=== PATIENT | female | born 1965 | race Caucasian/White ===

== ENCOUNTER → 2017-11-16 | Outpatient (CLI) | payer OTHER ==
[~2017-11-16] MED LIST: ADIPEX-P37.5 MG PO; AMBIEN 10 MG TA10 MG PO; AMITRIPTYLINE100 MG PO; BENADRYL25 MG PO; CATAPRES-TTS 10.1 MG TD; CIPRO500 MG PO; CLONIDINE PO; COZAAR 50 MG TA50 M1 PO; DARVOCET PO; DILAUDID2 M1 PO; ESTRACE1 MG PO; FLAGYL500 MG PO; FLEXERIL PO; GABAPENTIN300 MG PO; IMITREX100 MG PO; LEXAPRO 10 MG T10 M1 PO; NABUMETONE 750750 M1 PO; NITROFURANTOIN100 MG PO; ONDANSETRON HCL4 M2 PO; PHENERGAN 25 MG25 MG PO; PHENERGAN50 MG RC; PROTONIX40 M1 PO; REGLAN 10 MG TA10 MG PO; RELPAX40 MG PO; ROSUVASTATIN CA10 MG PO; SAPHRIS10 MG SL; TOMAZAPAM PO; TOPAMAX 100 MG100 MG PO; TORADOL 10 MG T10 MG PO; TRAZODONE 150150 M1 PO; VIIBRYD40 MG PO; VITAMIN D1000 UNI1 PO; XANAX1 MG PO; ZANAFLEX4 M1 PO; ZANAFLEX4 MG PO; ZOFRAN 4 MG ORAL4 MG PO
== END ==
LOC: MRI 09:10
DX: M48.02 Spinal stenosis, cervical region (principal); M54.12 Radiculopathy, cervical region; M25.78 Osteophyte, vertebrae; M50.222 Other cervical disc displacement at C5-C6 level; M50.223 Other cervical disc displacement at C6-C7 level; M47.892 Other spondylosis, cervical region; M51.24 Other intervertebral disc displacement, thoracic region

== ENCOUNTER 2018-01-01 14:09 | Inpatient (IN) | payer OTHER ==
[~2018-01-01] VITALS: Ht 165.1 cm; Wt 104.3 kg
--- NOTE | ~2018-01-01 | EKG ---
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 : 1965 Requested By: Sloan Armenta Order Number: [id number] MD: Jewel Kwok Measurements Intervals [place] Rate: 117 P: 42 [place]: 154 QRS: 45 QRSD: 91 T: 16 QT: 340 QTc: 475 Interpretive Statements Sinus tachycardia Nonspecific ST segment abnormality Compared to ECG 04/03/2013 14:17:26 No significant changes Electronically Signed On 01-01-2018 16:35:42 [employer] by Jewel Kwok [email or web address] <ELECTRONICALLY SIGNED> By: Jewel Kwok MD, [facility] 01/01/18 1635 1440 144 Jewel Kwok MD, [facility] /EPI
--- NOTE | ~2018-01-01 | HC ---
Formerly [facility] [address] [address] [place] [address] CONSULTATION Name: ODETTE PALMA Room #: 359-P ADM IN M.R.#: [id number] Admission: 01/01/18 Attend Phys: Rylan Wong MD Discharge: Date of : 65 Report #: [id number] THIS REPORT FOR: //name// CC: Juan Wong MD DATE OF SERVICE: 01/02/2018 PATIENT OF: Juan Donato MD CHIEF COMPLAINT: This is a very pleasant 52-year-old white female who developed 2 days of achy pain in the stomach and diarrhea. This was followed by the development of hematochezia and that hematochezia has persisted intermittently since it started a couple of days ago. The patient did faint at home at one point and apparently fell right on her face. She has had a cholecystectomy. She says her appetite has been decreased recently and she has had some crampy lower abdominal pain associated with this bleeding that is relieved by the passage of stools and flatus. PAST MEDICAL HISTORY: Significant for hyperlipidemia and she has arthritis in her neck that sounds like it is pretty severe. Depression, irritable bowel syndrome, sleep apnea, migraine headaches, bipolar depression and cervical stenosis. PAST SURGICAL HISTORY: Significant for total abdominal hysterectomy with bilateral salpingo-oophorectomy, she has had right ankle surgeries x 2 to repair ligaments, she has had surgery for migraine headaches apparently with a decompression surgery and cholecystectomy. ALLERGIES: PENICILLIN, SULFA, CODEINE, HYDROMORPHONE, OXYCODONE AND HYDROCODONE WELL TRAMADOL AND FENTANYL. CURRENT MEDICATIONS: At home included temazepam, Saphris, Zanaflex, Adipex-P, Lexapro, Relafen, Xanax, Imitrex, vitamin D, Elavil, metoclopramide and rosuvastatin. SOCIAL HISTORY: She does not smoke. She does not drink alcohol. She never had a blood transfusion. FAMILY HISTORY: Significant for colon cancer in her grandmother when she was quite young. Her mother has a history of Crohn's disease. The patient's last colonoscopy was in 2009 and she was told to have them every 10 years, but I told her she really needed to have them every 5 years because of her grandmother's history of colon cancer. [address] [address] CONSULTATION Name: ODETTE PALMA SCAR Room #: 359-P [facility] IN [place]#: [id number] Admission: 01/01/18 Attend Phys: Rylan Wong MD Discharge: Date of : 65 Report #: [id number] PHYSICAL EXAMINATION: GENERAL: Reveals a well-developed, well-nourished 52-year-old white female who is in no obvious distress at the time of my examination. She is awake, alert, oriented x 4 and cooperative and very pleasant to converse with. HEENT: She is normocephalic and atraumatic and anicteric. She has some facial wounds from a previous fall. HEART: Rate and rhythm are regular with a normal S1 and S2. LUNGS: Clear bilaterally. ABDOMEN: Soft. Bowel sounds are present in all four quadrants. There is no palpable organomegaly or mass. There is tenderness to palpation in the midepigastrium, but no rebound or guarding. EXTREMITIES: Warm and dry. No peripheral cyanosis, clubbing or edema. NEUROLOGIC: She appears grossly intact without lateralizing signs. IMPRESSION: 1. Hematochezia. Hemoglobin dropped from 12.2 to 10.9 overnight. Etiology is uncertain. The patient has been on Relafen and has epigastric pain. 2. History of colon cancer in her grandmother when the grandmother was very young. 3. History of Crohn's disease in her mother. 4. Depression. 5. Hypertension. 6. Irritable bowel syndrome. 7. Sleep apnea. 8. Migraine headaches. 9. Bipolar depression. 10. Cervical stenosis with left upper extremity numbness. RECOMMENDATIONS: My recommendations were to proceed with EGD at this time. We will also be sure she is on proton pump inhibitors because she has been on Relafen. She may need to have a colonoscopy as well while she is hospitalized if the etiology of hematochezia is not determined from the EGD. Thank you very much once again for allowing me to participate in her care, Dr. Donato and Dr. Wong. <ELECTRONICALLY SIGNED> By: Laura Ahn DO 01/03/18 1242 1321 2320 Laura Ahn DO /nt
--- NOTE | ~2018-01-01 | S ---
[facility] [place] [address] SURGICAL PATH RPT PROCEDURE Name: ODETTE PALMA SCAR Room #: 359-P ADM IN M.R.#: [id number] Admission: 01/01/18 Date of : 65 Discharge: Report #: [id number] Path Case #: [id number] PATHOLOGY REPORT COLLECTION DATE: 01/03/2018 RECEIVED DATE: 01/03/2018 SUBMITTING PHYS: Dr. Laura Ahn OTHER PHYS: Dr. Juan Donato SPECIMEN(S) RECEIVED: A.Biopsy segmental colitis-distal transverse, splenic flexure, and proximal descending rule out ischemia * * * * * * * * * * * * FINAL DIAGNOSIS: A. Biopsy segmental colitis-distal transverse, splenic flexure, and proximal descending rule out ischemia: - Fragment of colonic mucosa with prominent ischemic type change. - Separate fragments of colonic mucosa with mild active colitis. - See comment. COMMENT: The biopsy specimen demonstrates one fragment of colonic mucosa with prominent ischemic change, and separate fragments of colonic mucosa with mild active colitis. These findings are consistent with ischemic colitis, which can demonstrate a patchy colitis. A pseudomembranous colitis would be in the differential as well, but much less likely given the clinical impression. Correlation is recommended. PATHOLOGIST: Thomas Stewart M.D. REPORT ELECTRONICALLY SIGNED BY: Thomas Stewart M.D. DATE/TIME: 01/04/2018 12:23 * * * * * * * * * * * * GROSS PATHOLOGY: Received in formalin labeled "Odette Palma, BX of segmental colitis," and additionally labeled on the requisition as "distal transverse, splenic flexure, proximal descending," are 3 segments of price soft tissue measuring 1.2 x 0.5 x 0.2 cm in aggregate dimensions and ranging from 0.2 to 0.4 cm in maximum dimension. The specimen is submitted entirely in cassette A1. (TSD; 01/03/2018) CLINICAL HISTORY: Rectal bleeding, epigastric pain, rule out ischemia [address] [address] SURGICAL PATH RPT PROCEDURE Name: JUSTICEJOCELINODETTEELIEL ABBOTT Room #: 359- ADM IN M.R.#: [id number] Admission: 01/01/18 Date of : 65 Discharge: Report #: [id number] Path Case #: [id number] INITIAL CPT CODE(S): A; 50272 Professional services performed by [facility] at [address], [place] [address] Technical services performed by [facility] at [address] [place] [address], [address] [address]. [facility] [address] [place] [address] PHONE: [phone] DIRECTOR: Dave Garcia M.D. * * * END OF REPORT * * *
--- NOTE | ~2018-01-01 | S ---
[facility] [place] [address] [address] [place] [address] SURGICAL PATH RPT PROCEDURE Name: ODETTE PALMA SCAR Room #: 359-P ADM IN M.R.#: [id number] Admission: 01/01/18 Date of : 65 Discharge: Report #: [id number] Path Case #: [id number] PATHOLOGY REPORT COLLECTION DATE: 01/02/2018 RECEIVED DATE: 01/02/2018 SUBMITTING PHYS: Dr. Laura Ahn OTHER PHYS: Dr. Juan Wong SPECIMEN(S) RECEIVED: A.Gastric * * * * * * * * * * * * FINAL DIAGNOSIS: Gastric mucosa, gastric, endoscopic biopsy: - Mild reactive gastropathy. - Negative for intestinal metaplasia or atrophy. - Negative for Helicobacter pylori. COMMENT: Well controlled Helicobacter pylori immunohistochemical stain performed on block A1 - negative (IUV:pit; 01/03/2018) PATHOLOGIST: Sagrario Artis M.D. REPORT ELECTRONICALLY SIGNED BY: Sagrario Artis M.D. DATE/TIME: 01/03/2018 14:21 * * * * * * * * * * * * GROSS PATHOLOGY: Received in formalin labeled "Odette Palma gastric BX," are 2 segments of price soft tissue measuring 1.2 x 0.5 x 0.2 cm in aggregate dimensions and ranging from 0.4 to 0.6 cm in maximum dimension. The specimen is submitted entirely in cassette A1. (TSD; 01/02/2018) CLINICAL HISTORY: Pre-OP DX: Abdominal pain, GI bleed Post-OP DX: Gastritis INITIAL CPT CODE(S): A; 00921, 24654 Professional services performed by [facility] [address] [place] [address] SURGICAL PATH RPT PROCEDURE Name: ODETTE PALMA Room #: 359-P ADM IN M.R.#: [id number] Admission: 01/01/18 Date of : 65 Discharge: Report #: [id number] Path Case #: [id number] [address], [place] [address] Technical services performed by [facility] at [address] [place] [address], [address] [address]. [facility] [id number] [place] [address] PHONE: [phone] DIRECTOR: Dave Garcia M.D. * * * END OF REPORT * * *
--- NOTE | ~2018-01-01 | P ---
[facility] [place] [address] PROCEDURE REPORT Name: ODETTE PALMA Room #: 359-P ADM IN M.R.#: [id number] Admission: 01/01/18 Attend Phys: Rylan Wong MD Discharge: Date of : 65 Report #: [id number] THIS REPORT FOR: //name// CC: Juan Wong MD DATE OF SERVICE: 01/03/[address] Rylan Wong and Dr. Juan Donato. PROCEDURE: Colonoscopy with biopsy. INDICATION FOR PROCEDURE: This patient has hematochezia that was not well explained by EGD yesterday. Colonoscopy is being performed to further evaluate this symptom along with her presentation of abdominal pain. Informed consent for this procedure was obtained prior to the administration of any medication. The risks of the procedure which include bleeding, perforation, infection, complications of sedation and the possibility I could miss something have been explained to the patient and she has indicated her consent by signing. Propofol was slowly titrated before and during this procedure for patient comfort by the anesthesia service. Digital rectal exam was done and no abnormalities were palpated. Then, the [employer] colonoscope was introduced through the anal sphincter and advanced under direct visualization to the terminal ileum. Findings are noted on withdrawal of the scope. The terminal ileal mucosa appears normal. Cecum, normal mucosa. Ascending colon, normal mucosa. Hepatic flexure, normal mucosa. Distal transverse colon appears normal. In the mid transverse colon, we start to see erythema, edema and then ulcerations. These worsens significantly until we actually seen necrotic tissue in the more distal transverse colon. This continues around the splenic flexure and down to 50 cm in the descending colon. This is an area of ischemia, I suspect. I did obtain several biopsies from this area for histopathology. Distal to this, the colon resumes its normal appearance and this normal appearance extends all the way down to the distal rectum. Retroflexed view in the rectum did not reveal any other abnormalities. The scope was withdrawn. The patient went to the recovery area in stable condition. She tolerated the procedure well. IMPRESSION: Suspected area of ischemic colitis extending from 50-70 cm from the anal verge. As described above, it is necrotic in appearance and ulcerated. Biopsies are taken and are pending. I suspect this is ischemia. RECOMMENDATIONS: For her to go for a CT angiogram of the mesenteric arteries [address] [address] PROCEDURE REPORT Name: ODETTE PALMA SCAR Room #: 359-P [facility].#: [id number] Admission: 01/01/18 Attend Phys: Rylan Wong MD Discharge: Date of : 65 Report #: [id number] today possibly versus an angiogram directly. I will discuss this with Dr. Colon in IR first. We will start her on Cipro and Flagyl IV for now. Would cautiously start feeding her with a clear liquid diet and advance as tolerated. Thank you very much once again for allowing me to participate in her care, Dr. Donato and Dr. Wong. <ELECTRONICALLY SIGNED> By: Laura Ahn DO 01/04/18 0922 1237 1911 Laura Ahn DO /nt
--- NOTE | ~2018-01-01 | P ---
[facility] [place] [address] PROCEDURE REPORT Name: ODETTE PALMA Room #: 359-P ADM IN M.R.#: [id number] Admission: 01/01/18 Attend Phys: Rylan Wong MD Discharge: Date of : 65 Report #: [id number] THIS REPORT FOR: //name// CC: Juan Wong MD PROCEDURE PERFORMED: EGD with biopsies. INDICATION FOR PROCEDURE: Evaluate epigastric pain and hematochezia as well as diarrhea. Informed consent for this procedure was obtained prior to the administration of any medication. The risks of the procedure which include bleeding, perforation, infection, complications of sedation and the possibility I could miss something have been explained to the patient. She has indicated her consent by signing. Propofol was slowly titrated before and during this procedure for patient comfort by the anesthesia service. The [place] upper videoscope was introduced through the upper esophageal sphincter and advanced under direct visualization to the third portion of the duodenum. Findings are noted on withdrawal of the scope. The duodenal mucosa appears normal throughout its entirety except for some mild erythema in the duodenal bulb. Pylorus, normal mucosa. Antrum, hemorrhagic gastritis appearance. Biopsies obtained x 2 from the antrum and the body of the stomach for histopathology. Body, erythematous mucosa. Cardia and fundus, erythematous mucosa. Retroflex view did not reveal any abnormalities. The scope was withdrawn to the esophagus. Esophageal mucosa appears normal throughout its entirety. The scope was withdrawn. The patient went to the recovery area in stable condition. She tolerated the procedure well. IMPRESSION: Diffuse hemorrhagic gastritis of the antrum and diffuse mild gastric erythema of the body, cardia and fundus of the stomach as above and mild erythema of the duodenal bulb. RECOMMENDATIONS: To await the biopsy results. We will make sure that she gets scheduled for a colonoscopy tomorrow to evaluate further for causes of hematochezia not explained on EGD. We will monitor H and H closely. Thank you very much once again for allowing me to participate in her care, Dr. Donato and Dr. Wong. <ELECTRONICALLY SIGNED> By: Laura Ahn DO 01/03/18 1242 1324 2342 Laura Ahn DO /nt
[~2018-01-01 14:09] MED LIST changes: -AMITRIPTYLINE100 MG PO; -CIPRO500 MG PO; -FLAGYL500 MG PO; -NITROFURANTOIN100 MG PO; -ONDANSETRON HCL4 M2 PO; -PROTONIX40 M1 PO; -ROSUVASTATIN CA10 MG PO; -VITAMIN D1000 UNI1 PO
[2018-01-01 14:19] VITALS: BP 133/87
[2018-01-01 15:13] LABS: ABSOLUTE NEUTROPHILS 12.5 thou/uL (1.4-8.2); BASOPHILS 0.7 % (0.0-2.0); EOSINOPHILS 0.7 % (0.0-3.0); HEMATOCRIT 42.7 % (37.0-47.0); HEMOGLOBIN 14.6 gm/dL (12.0-15.0); MCH 29.8 pg (26.0-34.0); MCHC 34.2 g/dL (28.0-37.0); MCV 87.1 fL (80.0-100.0); MONOCYTES 7.1 % (1.0-8.0); PLATELET COUNT 248 thou/uL (150-400); POLYS 81.5 % (36.0-66.0); RDW 12.4 % (10.5-14.5); WBC 15.3 thou/uL (4.0-11.0)
[2018-01-01 15:22] LABS: ANION GAP 9 mmol/L (7-16); BUN 15 mg/dL (7-18); CALCIUM 9.6 mg/dL (8.5-10.1); CHLORIDE 98 mmol/L (98-107); CO2 29 mmol/L (21-32); GLUCOSE 116 mg/dL (74-106); POTASSIUM 3.6 mmol/L (3.5-5.1); SODIUM 136 mmol/L (136-145)
[2018-01-01 15:31] LABS: TROPONIN-I < 0.04 ng/mL (<0.06)
[2018-01-01 15:33] LABS: APTT 25.4 Seconds (24.5-32.8); PROTIME 9.8 Seconds (9.3-11.4)
[2018-01-01] MEDS ORDERED: NABUMETONE 750750 M1 PO (16:25)
[2018-01-01] MEDS ORDERED: VITAMIN D1000 UNI1 PO (16:25)
[2018-01-01] MEDS ORDERED: AMITRIPTYLINE100 MG PO (16:26)
[2018-01-01] MEDS ORDERED: REGLAN 10 MG TA10 MG PO (16:26)
[2018-01-01] MEDS ORDERED: TRAZODONE 150150 M1 PO (16:26)
[2018-01-01] MEDS ORDERED: ROSUVASTATIN CA10 MG PO (16:27)
[2018-01-01 18:08] VITALS: BP 132/82
[2018-01-01 18:36] VITALS: BP 130/81
[2018-01-01 18:53] LABS: HEMATOCRIT 40.3 % (37.0-47.0); HEMOGLOBIN 13.9 gm/dL (12.0-15.0)
[2018-01-01 20:00] VITALS: BP 129/83
[2018-01-01 22:45] LABS: HEMATOCRIT 39.1 % (37.0-47.0); HEMOGLOBIN 13.1 gm/dL (12.0-15.0)
[2018-01-02 04:00] VITALS: BP 80/60
[2018-01-02 04:48] LABS: CALCIUM 8.4 mg/dL (8.5-10.1)
[2018-01-02 05:18] LABS: HEMATOCRIT 33.2 % (37.0-47.0); HEMOGLOBIN 11.2 gm/dL (12.0-15.0); MCH 29.8 pg (26.0-34.0); MCHC 33.7 g/dL (28.0-37.0); MCV 88.5 fL (80.0-100.0); RBC 3.75 mil/uL (4.20-5.00); RDW 12.4 % (10.5-14.5); WBC 13.5 thou/uL (4.0-11.0)
[2018-01-02 07:41] VITALS: BP 117/61
[2018-01-02 10:46] LABS: HEMOGLOBIN 11.9 gm/dL (12.0-15.0)
[2018-01-02 11:27] LABS: URINE BILIRUBIN NEGATIVE (Negative); URINE BLOOD 3+ (Negative); URINE CLARITY CLEAR; URINE COLOR YELLOW; URINE GLUCOSE-RANDOM* NEGATIVE (Negative); URINE KETONES NEGATIVE (Negative); URINE NITRITE-REFLEX NEGATIVE (Negative); URINE PROTEIN (DIPSTICK) NEGATIVE (Negative); URINE SPECIFIC GRAVITY 1.015 (1.005-1.035)
[2018-01-02 11:28] LABS: URINE LEUKOCYTES-REFLEX 2+ (Negative)
[2018-01-02 11:35] LABS: CASTS None Seen /LPF (None Seen); SQUAMOUS 0-3 Few /LPF (0-3); URINE WBC-REFLEX 6-15 Few /HPF (0-5)
[2018-01-02 11:36] LABS: CRYSTALS None Seen /LPF (None Seen); URINE RBC None Seen /HPF (0-2)
[2018-01-02 15:54] VITALS: BP 153/88
[2018-01-02 17:30] LABS: HEMATOCRIT 37.9 % (37.0-47.0); HEMOGLOBIN 12.8 gm/dL (12.0-15.0)
[2018-01-02 19:30] VITALS: BP 155/99
[2018-01-03 03:40] VITALS: BP 155/94
[2018-01-03 05:33] LABS: HEMATOCRIT 35.5 % (37.0-47.0); MCH 29.9 pg (26.0-34.0); MCHC 33.8 g/dL (28.0-37.0); MCV 88.5 fL (80.0-100.0); RBC 4.01 mil/uL (4.20-5.00); RDW 12.5 % (10.5-14.5); WBC 13.7 thou/uL (4.0-11.0)
[2018-01-03 05:36] LABS: CALCIUM 9.1 mg/dL (8.5-10.1); CREATININE 0.8 mg/dL (0.6-1.0); POTASSIUM 3.5 mmol/L (3.5-5.1)
[2018-01-03 08:49] VITALS: BP 157/84
[2018-01-03 16:36] VITALS: BP 155/93
[2018-01-03 19:15] VITALS: BP 145/75
[2018-01-04 04:09] VITALS: BP 99/56
[2018-01-04 08:00] VITALS: BP 93/65
[2018-01-04 16:42] VITALS: BP 160/97
[2018-01-04 19:40] VITALS: BP 141/65
[2018-01-04 20:40] VITALS: BP 157/79
[2018-01-05 03:30] VITALS: BP 102/59
[2018-01-05 05:30] LABS: HEMATOCRIT 30.6 % (37.0-47.0); HEMOGLOBIN 10.5 gm/dL (12.0-15.0); MCH 30.3 pg (26.0-34.0); MCHC 34.3 g/dL (28.0-37.0); MCV 88.3 fL (80.0-100.0); RBC 3.46 mil/uL (4.20-5.00); RDW 12.3 % (10.5-14.5); WBC 7.7 thou/uL (4.0-11.0)
[2018-01-05 05:44] LABS: CALCIUM 8.8 mg/dL (8.5-10.1); CREATININE 0.9 mg/dL (0.6-1.0); POTASSIUM 3.5 mmol/L (3.5-5.1)
[2018-01-05 07:38] VITALS: BP 116/67
[2018-01-05] MEDS ORDERED: NITROFURANTOIN100 MG PO (11:45)
[2018-01-05] MEDS ORDERED: CIPRO500 MG PO ×2 (11:45→12:40)
[2018-01-05] MEDS ORDERED: FLAGYL500 MG PO ×2 (11:46→12:40)
[2018-01-05] MEDS ORDERED: PROTONIX40 M1 PO (11:48)
[2018-01-05 11:57] VITALS: BP 116/67
== END 2018-01-05 14:23 | disposition home or self-care (01) | DRG 871 ==
LOC: ER 14:09 → EROBS 15:51 → 3W 15:51
PROVIDERS: Emergency Medicine; Hospitalist; Internal Medicine Gastroenterology
PROC: 0DBL8ZX Excision of Transverse Colon, Via Natural or Artificial Opening Endoscopic, Diagnostic (ICD-10-PCS; principal; 2018-01-01)
PROC: 0DB68ZX Excision of Stomach, Via Natural or Artificial Opening Endoscopic, Diagnostic (ICD-10-PCS; principal; 2018-01-01)
PROC: 0DBM8ZX Excision of Descending Colon, Via Natural or Artificial Opening Endoscopic, Diagnostic (ICD-10-PCS; principal; 2018-01-01)
DX: A41.9 Sepsis, unspecified organism (principal); K29.71 Gastritis, unspecified, with bleeding; N39.0 Urinary tract infection, site not specified; K76.0 Fatty (change of) liver, not elsewhere classified; E78.5 Hyperlipidemia, unspecified; F41.9 Anxiety disorder, unspecified; K58.9 Irritable bowel syndrome, unspecified; G43.909 Migraine, unspecified, not intractable, without status migrainosus; F31.9 Bipolar disorder, unspecified; Z90.710 Acquired absence of both cervix and uterus; Z90.49 Acquired absence of other specified parts of digestive tract; Z88.6 Allergy status to analgesic agent; Z88.0 Allergy status to penicillin; Z88.2 Allergy status to sulfonamides
CPT/HCPCS: 10879; 62110; 62900; 70005

== ENCOUNTER 2018-05-19 12:35 | Emergency (ER) | payer OTHER ==
[~2018-05-19] VITALS: Ht 165.1 cm; Wt 99.8 kg
[~2018-05-19 12:35] MED LIST changes: +AMITRIPTYLINE100 MG PO; +CIPRO500 MG PO; +FLAGYL500 MG PO; +NITROFURANTOIN100 MG PO; +PROTONIX40 M1 PO; +ROSUVASTATIN CA10 MG PO; +VITAMIN D1000 UNI1 PO
== END 2018-05-19 15:27 | disposition home or self-care (01) ==
LOC: ER 12:35
DX: G43.909 Migraine, unspecified, not intractable, without status migrainosus (principal); I10 Essential (primary) hypertension; F31.9 Bipolar disorder, unspecified; Z90.710 Acquired absence of both cervix and uterus; Z90.49 Acquired absence of other specified parts of digestive tract; Z88.2 Allergy status to sulfonamides; Z88.0 Allergy status to penicillin; Z88.5 Allergy status to narcotic agent; Z88.8 Allergy status to other drugs, medicaments and biological substances

== ENCOUNTER 2018-08-26 15:09 | Emergency (ER) | payer OTHER ==
[~2018-08-26] VITALS: Ht 165.1 cm; Wt 103.4 kg
[2018-08-26 16:49] LABS: ABSOLUTE NEUTROPHILS 7.6 thou/uL (1.4-8.2); BASOPHILS 0.8 % (0.0-2.0); EOSINOPHILS 2.8 % (0.0-3.0); HEMATOCRIT 43.9 % (37.0-47.0); HEMOGLOBIN 15.3 gm/dL (12.0-15.0); LYMPHOCYTES 24.2 % (24.0-44.0); MCH 30.7 pg (26.0-34.0); MCHC 34.8 g/dL (28.0-37.0); MCV 88.2 fL (80.0-100.0); MONOCYTES 6.1 % (1.0-8.0); PLATELET COUNT 300 thou/uL (150-400); POLYS 66.1 % (36.0-66.0); RBC 4.98 mil/uL (4.20-5.00); RDW 12.4 % (10.5-14.5); WBC 11.5 thou/uL (4.0-11.0)
[2018-08-26 16:59] LABS: CALCIUM 10.2 mg/dL (8.5-10.1); POTASSIUM 3.8 mmol/L (3.5-5.1)
[2018-08-26 17:05] LABS: ALBUMIN 4.2 g/dL (3.4-5.0); TOTAL BILIRUBIN 0.7 mg/dL (<0.1-1.0); TOTAL PROTEIN 8.6 g/dL (6.4-8.2)
[2018-08-26 18:40] LABS: URINE BILIRUBIN NEGATIVE (Negative); URINE BLOOD NEGATIVE (Negative); URINE CLARITY CLEAR; URINE COLOR YELLOW; URINE GLUCOSE-RANDOM* NEGATIVE (Negative); URINE KETONES NEGATIVE (Negative); URINE LEUKOCYTES-REFLEX NEGATIVE (Negative); URINE NITRITE-REFLEX NEGATIVE (Negative); URINE PROTEIN (DIPSTICK) NEGATIVE (Negative); URINE SPECIFIC GRAVITY 1.015 (1.005-1.035); URINE UROBILINOGEN 0.2 E.U./dl (0.2-1.0)
[2018-08-26] MEDS ORDERED: ONDANSETRON HCL4 M2 PO (18:41)
[2018-08-26] MEDS ORDERED: CIPRO500 MG PO (18:41)
[2018-08-26] MEDS ORDERED: FLAGYL500 MG PO (18:41)
== END 2018-08-26 19:40 | disposition home or self-care (01) ==
LOC: ER 15:09
PROVIDERS: Physician Assistant
DX: K52.9 Noninfective gastroenteritis and colitis, unspecified (principal); R00.0 Tachycardia, unspecified; M48.02 Spinal stenosis, cervical region; I10 Essential (primary) hypertension; G47.30 Sleep apnea, unspecified; G43.909 Migraine, unspecified, not intractable, without status migrainosus; F31.9 Bipolar disorder, unspecified; Z90.49 Acquired absence of other specified parts of digestive tract; Z90.710 Acquired absence of both cervix and uterus; Z88.2 Allergy status to sulfonamides; Z88.8 Allergy status to other drugs, medicaments and biological substances; Z88.4 Allergy status to anesthetic agent; Z88.5 Allergy status to narcotic agent

== ENCOUNTER 2018-11-09 16:25 | Emergency (ER) | payer OTHER ==
[~2018-11-09] VITALS: Ht 165.1 cm; Wt 102.1 kg
[~2018-11-09 16:25] MED LIST changes: +ONDANSETRON HCL4 M2 PO
[2018-11-09 19:04] LABS: URINE BILIRUBIN NEGATIVE (Negative); URINE BLOOD TRACE (Negative); URINE CLARITY CLEAR; URINE COLOR YELLOW; URINE GLUCOSE-RANDOM* NEGATIVE (Negative); URINE KETONES NEGATIVE (Negative); URINE NITRITE-REFLEX NEGATIVE (Negative); URINE PROTEIN (DIPSTICK) NEGATIVE (Negative); URINE UROBILINOGEN 0.2 E.U./dl (0.2-1.0)
[2018-11-09 19:06] LABS: ABSOLUTE NEUTROPHILS 6.6 thou/uL (1.4-8.2); BASOPHILS 1.4 % (0.0-2.0); EOSINOPHILS 3.2 % (0.0-3.0); HEMATOCRIT 45.1 % (37.0-47.0); HEMOGLOBIN 15.4 gm/dL (12.0-15.0); LYMPHOCYTES 24.6 % (24.0-44.0); MCH 29.9 pg (26.0-34.0); MCHC 34.2 g/dL (28.0-37.0); MCV 87.6 fL (80.0-100.0); MONOCYTES 6.8 % (1.0-8.0); PLATELET COUNT 274 thou/uL (150-400); RBC 5.15 mil/uL (4.20-5.00); RDW 12.6 % (10.5-14.5); WBC 10.3 thou/uL (4.0-11.0)
[2018-11-09 19:07] LABS: URINE LEUKOCYTES-REFLEX 2+ (Negative)
[2018-11-09 19:11] LABS: SQUAMOUS >10 Many /LPF (0-3)
[2018-11-09 19:12] LABS: BACTERIA-REFLEX 1-9 Few /HPF (None Seen); CASTS None Seen /LPF (None Seen); CRYSTALS None Seen /LPF (None Seen); URINE RBC 3-10 Few /HPF (0-2)
[2018-11-09 19:14] LABS: CALCIUM 9.9 mg/dL (8.5-10.1); POTASSIUM 3.7 mmol/L (3.5-5.1)
[2018-11-09 19:20] LABS: ALBUMIN 4.4 g/dL (3.4-5.0); TOTAL BILIRUBIN 0.8 mg/dL (<0.1-1.0); TOTAL PROTEIN 8.4 g/dL (6.4-8.2)
[2018-11-09] MEDS ORDERED: FLAGYL500 M1 PO (20:17)
[2018-11-09] MEDS ORDERED: CIPRO500 MG PO (20:17)
[2018-11-09 20:24] VITALS: BP 140/80
== END 2018-11-09 20:29 | disposition home or self-care (01) ==
LOC: ER 16:25
PROVIDERS: Physician Assistant
DX: K52.9 Noninfective gastroenteritis and colitis, unspecified (principal); I10 Essential (primary) hypertension; G47.30 Sleep apnea, unspecified; M48.02 Spinal stenosis, cervical region; G43.909 Migraine, unspecified, not intractable, without status migrainosus; F31.9 Bipolar disorder, unspecified; I95.9 Hypotension, unspecified; Z88.2 Allergy status to sulfonamides; Z88.4 Allergy status to anesthetic agent; Z88.8 Allergy status to other drugs, medicaments and biological substances; Z88.0 Allergy status to penicillin; Z88.5 Allergy status to narcotic agent; Z90.710 Acquired absence of both cervix and uterus; Z90.49 Acquired absence of other specified parts of digestive tract

== ENCOUNTER 2019-04-18 15:53 | Emergency (ER) | payer OTHER ==
[~2019-04-18] VITALS: Ht 162.6 cm; Wt 117.9 kg
[~2019-04-18 15:53] MED LIST changes: +FLAGYL500 M1 PO
[2019-04-18 17:37] LABS: URINE BILIRUBIN NEGATIVE (Negative); URINE BLOOD NEGATIVE (Negative); URINE CLARITY CLEAR; URINE COLOR YELLOW; URINE GLUCOSE-RANDOM* NEGATIVE (Negative); URINE KETONES NEGATIVE (Negative); URINE NITRITE-REFLEX NEGATIVE (Negative); URINE PROTEIN (DIPSTICK) NEGATIVE (Negative); URINE UROBILINOGEN 0.2 E.U./dl (0.2-1.0)
[2019-04-18 17:42] LABS: ABSOLUTE NEUTROPHILS 5.9 thou/uL (1.4-8.2); BASOPHILS 0.7 % (0.0-2.0); EOSINOPHILS 3.6 % (0.0-3.0); HEMATOCRIT 42.4 % (37.0-47.0); HEMOGLOBIN 14.4 gm/dL (12.0-15.0); LYMPHOCYTES 25.5 % (24.0-44.0); MCH 29.9 pg (26.0-34.0); MCHC 33.9 g/dL (28.0-37.0); MCV 88.2 fL (80.0-100.0); MONOCYTES 7.1 % (1.0-8.0); PLATELET COUNT 269 thou/uL (150-400); POLYS 63.1 % (36.0-66.0); RDW 12.2 % (10.5-14.5); WBC 9.3 thou/uL (4.0-11.0)
[2019-04-18 17:46] LABS: URINE LEUKOCYTES-REFLEX 2+ (Negative)
[2019-04-18 17:50] LABS: CALCIUM 9.5 mg/dL (8.5-10.1); CREATININE 1.1 mg/dL (0.6-1.0); POTASSIUM 3.8 mmol/L (3.5-5.1)
[2019-04-18 17:57] LABS: ALBUMIN 3.9 g/dL (3.4-5.0); APTT 26.4 Seconds (24.5-32.8); PROTIME 9.8 Seconds (9.3-11.4); TOTAL BILIRUBIN 0.7 mg/dL (<0.1-1.0); TOTAL PROTEIN 7.9 g/dL (6.4-8.2)
[2019-04-18 18:00] LABS: CASTS None Seen /LPF (None Seen); CRYSTALS None Seen /LPF (None Seen); SQUAMOUS >10 Many /LPF (0-3); URINE RBC 0-2 Rare /HPF (0-2)
[2019-04-18] MEDS ORDERED: CRESTOR10 MG PO (18:15)
[2019-04-18] MEDS ORDERED: ZUPLENZ8 MG PO (18:15)
[2019-04-18] MEDS ORDERED: CARDIZEM CD120 MG PO (18:16)
[2019-04-18] MEDS ORDERED: FLAGYL500 M1 PO (19:27)
[2019-04-18] MEDS ORDERED: CIPROFLOXACIN500 M1 PO (19:27)
[2019-04-18 19:37] VITALS: BP 134/78
== END 2019-04-18 19:38 | disposition still patient (30) ==
LOC: ER 15:53
PROVIDERS: Emergency Medicine
DX: K52.9 Noninfective gastroenteritis and colitis, unspecified (principal); D72.829 Elevated white blood cell count, unspecified; I10 Essential (primary) hypertension; G47.30 Sleep apnea, unspecified; F31.9 Bipolar disorder, unspecified; G43.909 Migraine, unspecified, not intractable, without status migrainosus; Z90.49 Acquired absence of other specified parts of digestive tract; Z90.710 Acquired absence of both cervix and uterus; Z88.2 Allergy status to sulfonamides; Z88.4 Allergy status to anesthetic agent; Z88.0 Allergy status to penicillin; Z88.6 Allergy status to analgesic agent

== ENCOUNTER 2019-04-20 17:04 | Emergency (ER) | payer OTHER ==
[~2019-04-20] VITALS: Ht 165.1 cm; Wt 104.3 kg
[~2019-04-20 17:04] MED LIST changes: +CARDIZEM CD120 MG PO; +CIPROFLOXACIN500 M1 PO; +CRESTOR10 MG PO; +ZUPLENZ8 MG PO
[2019-04-20] MEDS ORDERED: MIGRANAL1 ML NASAL (17:24)
[2019-04-20 17:52] LABS: BASOPHILS 1.3 % (0.0-2.0); EOSINOPHILS 3.5 % (0.0-3.0); HEMATOCRIT 39.2 % (37.0-47.0); HEMOGLOBIN 13.5 gm/dL (12.0-15.0); LYMPHOCYTES 20.6 % (24.0-44.0); MCH 30.5 pg (26.0-34.0); MCHC 34.5 g/dL (28.0-37.0); MCV 88.3 fL (80.0-100.0); MONOCYTES 5.9 % (1.0-8.0); PLATELET COUNT 257 thou/uL (150-400); POLYS 68.7 % (36.0-66.0); RBC 4.44 mil/uL (4.20-5.00); WBC 7.3 thou/uL (4.0-11.0)
[2019-04-20 17:56] LABS: CALCIUM 9.2 mg/dL (8.5-10.1); CREATININE 1.1 mg/dL (0.6-1.0); POTASSIUM 3.7 mmol/L (3.5-5.1)
[2019-04-20 18:02] LABS: ALBUMIN 3.7 g/dL (3.4-5.0); TOTAL BILIRUBIN 0.4 mg/dL (<0.1-1.0); TOTAL PROTEIN 7.2 g/dL (6.4-8.2)
[2019-04-20] MEDS ORDERED: NORFLEX100 MG PO (19:01)
[2019-04-20] MEDS ORDERED: PROMS25 WY RECTAL (19:01)
[2019-04-20 20:39] VITALS: BP 151/81
== END 2019-04-20 20:39 | disposition home or self-care (01) ==
LOC: ER 17:04
PROVIDERS: Emergency Medicine
DX: G43.909 Migraine, unspecified, not intractable, without status migrainosus (principal); K52.9 Noninfective gastroenteritis and colitis, unspecified; M26.609 Unspecified temporomandibular joint disorder, unspecified side; I10 Essential (primary) hypertension; G47.30 Sleep apnea, unspecified; F31.9 Bipolar disorder, unspecified; Z90.49 Acquired absence of other specified parts of digestive tract; Z90.710 Acquired absence of both cervix and uterus

== ENCOUNTER 2019-04-24 17:52 | Inpatient (IN) | payer OTHER ==
[~2019-04-24] VITALS: Ht 165.1 cm; Wt 101.6 kg
[~2019-04-24 17:52] MED LIST changes: +MIGRANAL1 ML NASAL; +NORFLEX100 MG PO; +PROMS25 WY RECTAL
[2019-04-24 18:11] VITALS: BP 167/91
[2019-04-24 18:30] LABS: URINE BILIRUBIN NEGATIVE (Negative); URINE BLOOD NEGATIVE (Negative); URINE CLARITY CLEAR; URINE COLOR YELLOW; URINE GLUCOSE-RANDOM* NEGATIVE (Negative); URINE KETONES NEGATIVE (Negative); URINE LEUKOCYTES-REFLEX NEGATIVE (Negative); URINE NITRITE-REFLEX NEGATIVE (Negative); URINE PROTEIN (DIPSTICK) NEGATIVE (Negative); URINE UROBILINOGEN 0.2 E.U./dl (0.2-1.0)
[2019-04-24 19:13] LABS: ABSOLUTE NEUTROPHILS 6.1 thou/uL (1.4-8.2); BASOPHILS 1.3 % (0.0-2.0); EOSINOPHILS 3.3 % (0.0-3.0); HEMATOCRIT 42.9 % (37.0-47.0); HEMOGLOBIN 14.8 gm/dL (12.0-15.0); LYMPHOCYTES 25.4 % (24.0-44.0); MCH 30.4 pg (26.0-34.0); MCHC 34.5 g/dL (28.0-37.0); MCV 88.1 fL (80.0-100.0); MONOCYTES 9.2 % (1.0-8.0); PLATELET COUNT 283 thou/uL (150-400); POLYS 60.8 % (36.0-66.0); RBC 4.88 mil/uL (4.20-5.00); RDW 12.3 % (10.5-14.5); WBC 10.1 thou/uL (4.0-11.0)
[2019-04-24 19:19] LABS: CALCIUM 9.7 mg/dL (8.5-10.1); CREATININE 1.1 mg/dL (0.6-1.0); POTASSIUM 3.9 mmol/L (3.5-5.1)
[2019-04-24 19:24] LABS: ALBUMIN 4.3 g/dL (3.4-5.0); TOTAL BILIRUBIN 0.4 mg/dL (<0.1-1.0); TOTAL PROTEIN 8.1 g/dL (6.4-8.2)
[2019-04-24 21:06] VITALS: BP 164/95
[2019-04-24 21:18] VITALS: BP 162/73
[2019-04-24 22:22] VITALS: BP 181/103
--- NOTE | 2019-04-24 23:57 | NUR ---
Pt arrived on unit from ED at 2210 accompanied by staff on a cart. A/OX4,oriented to the unit and made comfortable in room. Fall safety education reinforced and bed alarm,yellow socks/band placed. Admission paperwork completed. Pt c/o migraine YOUNG LOP 7/10,BP elevated. [employer] came to assess pt new orders written and ackwoledged. Will continue monitoring pt. No c/o nausea at this time.
[2019-04-25 01:30] VITALS: BP 151/92
--- NOTE | 2019-04-25 04:25 | NUR ---
Pt medicated with Fentanyl/Imitrex at 0030 as well as HS meds and did verbalize relief from the headache and comfortable LOP /10. BP down to 151/92. Pt is up w/SBA to bathroom and following fall protocol. Denies any needs at this time. Resting O2 on @2L/NC, no distress will continue to monitor pt.
[2019-04-25 05:28] LABS: CALCIUM 8.4 mg/dL (8.5-10.1); POTASSIUM 4.2 mmol/L (3.5-5.1)
[2019-04-25 06:34] VITALS: BP 103/61
--- NOTE | 2019-04-25 10:27 | NUR ---
PATIENT CARE WAS ASSUMED AT 0715.PATIENT IS ALERT AND ORIENTED X4.PATIENT HAS HEADACHE 3/.WAS OFFERED TYLENOL, AND PATIENT REFUSED STATED IT DOES NOTHING FOR HER.PATIENT WAS WANTING TO KNOW THE PLAN FAR HER CARE.IV IS INTACT AND PATENT.PT HAS O2 AT 2L WHILE SLEEPING.PT IS RESTING IN BED.PATIENT IS ABLE TO AMBULATE WITH STAND BY ASSIST.FALL PRECAUTIONS ARE IN PLACE.CALL LIGHT,PHONE, AND PERSONAL BELONGINGS ARE WITHIN REACH.
--- NOTE | 2019-04-25 13:49 | NUR ---
PT ADMITTED RLEATED TO INTRACTABLE MIGRAINE. CM REVIEWED CHART AND SPOKE WITH CARE TEAM. CM MET WITH PT AT BEDSIDE THIS DAY. PT IS A&0 X4. CM ROLE INTRODUCED. PT INDICATED SHE LIVES IN A HOUSE WITH HER SIGNIFICANT OTHER WITH 1 STEP TO ENTER AND A FULL FLIGHT OF STEPS INSIDE. 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 PT INDICATED NO DME OR HH HX. PT INDICATED SHE PLANS TO RETURN HOME ONCE MEDICALLY STABLE. CM TO FOLLOW INDICATED WITH DC PLANNING.
[2019-04-25 15:00] VITALS: BP 120/67
--- NOTE | 2019-04-25 16:05 | EKG ---
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 : 1965 Requested By: Oseas Benoit Order Number: [id number] MD: Jewel Kwok Measurements Intervals [place] Rate: 95 P: 42 NE: 159 QRS: 40 QRSD: 91 T: 26 QT: 403 QTc: 507 Interpretive Statements Sinus rhythm Nonspecific ST and T wave abnormality Borderline prolonged QT interval Compared to ECG 01/01/2018 14:40:13 No significant change was found Electronically Signed On 04-25-2019 16:05:52 CDT by Jewel Kwok [email or web address] ��������������������������������������������� <ELECTRONICALLY SIGNED> ���������������������������������������� By: Jewel Kwok MD, [facility] ��������������������������������������������� 04/25/19 1605 35 35 Jewel Kwok MD, [facility] /EPI
[2019-04-25] MEDS ORDERED: FLEXERIL PO (16:11)
[2019-04-25 16:19] VITALS: BP 120/67
--- NOTE | 2019-04-25 16:45 | NUR ---
PATIENT WAS DISCHARGED TO GO HOME WITH SELF CARE.PATIENT'S IV WAS TAKEN OUT CATH WAS INTACT.PT WAS GIVEN D/C PAPERS AND EDUCATION ON NEW MEDICATIONS.PT HAS NO QUESTIONS AT THIS TIME.PT WAS TAKEN DOWN TO CAR WITH FRIEND AND TRANSPORTER VIA W/C.
== END 2019-04-25 16:50 | disposition home or self-care (01) | DRG 103 ==
LOC: ER 17:52 → 4W 20:37 → EROBS 20:37 → 4W 21:19 → ENTRNSPT 04-25 16:38 → 4W 04-25 16:50
PROVIDERS: Emergency Medicine; Nurse Practitioner Family; ADMIT Hospitalist
DX: G43.911 Migraine, unspecified, intractable, with status migrainosus (principal); I10 Essential (primary) hypertension; K58.9 Irritable bowel syndrome, unspecified; F31.9 Bipolar disorder, unspecified; E78.5 Hyperlipidemia, unspecified; F41.9 Anxiety disorder, unspecified; M48.02 Spinal stenosis, cervical region; S13.4XXA Sprain of ligaments of cervical spine, initial encounter; X58.XXXA Exposure to other specified factors, initial encounter; M46.92 Unspecified inflammatory spondylopathy, cervical region; G47.33 Obstructive sleep apnea (adult) (pediatric); Z99.81 Dependence on supplemental oxygen; Z90.710 Acquired absence of both cervix and uterus; Z90.49 Acquired absence of other specified parts of digestive tract; Z79.899 Other long term (current) drug therapy; Z88.2 Allergy status to sulfonamides; Z88.0 Allergy status to penicillin; Z88.6 Allergy status to analgesic agent; Z88.8 Allergy status to other drugs, medicaments and biological substances; Y93.89 Activity, other specified; Y92.89 Other specified places as the place of occurrence of the external cause; Y99.8 Other external cause status
CPT/HCPCS: 10045

== ENCOUNTER 2020-07-06 15:18 | Emergency (ER) | payer OTHER ==
[~2020-07-06] VITALS: Ht 165.1 cm; Wt 102.1 kg
[2020-07-06 16:01] LABS: ABSOLUTE NEUTROPHILS 3.9 thou/uL (1.4-8.2); BASOPHILS 1.3 % (0.0-2.0); EOSINOPHILS 6.7 % (0.0-3.0); HEMATOCRIT 41.3 % (37.0-47.0); HEMOGLOBIN 14.3 gm/dL (12.0-15.0); LYMPHOCYTES 31.5 % (24.0-44.0); MCH 30.5 pg (26.0-34.0); MCHC 34.5 g/dL (28.0-37.0); MCV 88.3 fL (80.0-100.0); MONOCYTES 9.3 % (1.0-8.0); PLATELET COUNT 304 thou/uL (150-400); POLYS 51.2 % (36.0-66.0); RBC 4.68 mil/uL (4.20-5.00); RDW 12.4 % (10.5-14.5); WBC 7.6 thou/uL (4.0-11.0)
[2020-07-06 16:10] LABS: CALCIUM 9.1 mg/dL (8.5-10.1)
[2020-07-06 16:14] LABS: ALBUMIN 3.9 g/dL (3.4-5.0); TOTAL BILIRUBIN 0.3 mg/dL (0.2-1.0); TOTAL PROTEIN 7.8 g/dL (6.4-8.2)
[2020-07-06 18:01] VITALS: BP 136/66
== END 2020-07-06 18:02 | disposition home or self-care (01) ==
LOC: ER 15:18
PROVIDERS: Emergency Medicine
DX: R10.12 Left upper quadrant pain (principal); I10 Essential (primary) hypertension; G43.909 Migraine, unspecified, not intractable, without status migrainosus; F31.9 Bipolar disorder, unspecified; Z88.0 Allergy status to penicillin; Z88.2 Allergy status to sulfonamides; Z88.8 Allergy status to other drugs, medicaments and biological substances; Z90.711 Acquired absence of uterus with remaining cervical stump; Z90.49 Acquired absence of other specified parts of digestive tract; Z79.899 Other long term (current) drug therapy; Z88.5 Allergy status to narcotic agent; Z88.6 Allergy status to analgesic agent

== ENCOUNTER → 2021-03-24 | Outpatient (CLI) | payer OTHER | LOC: MRI 03-16 09:18 | PROVIDERS: ATTEND Nurse Practitioner Adult Health | DX: M47.812 Spondylosis without myelopathy or radiculopathy, cervical region (principal); M48.02 Spinal stenosis, cervical region ==

== ENCOUNTER 2021-11-09 19:52 | Emergency (ER) | payer OTHER ==
[~2021-11-09] VITALS: Ht 165.1 cm; Wt 104.3 kg
[2021-11-09] MEDS ORDERED: CYCLOBENZAPRINE5 MG PO (21:22)
[2021-11-09] MEDS ORDERED: TIZANIDINE HCL4 M2 PO (21:23)
[2021-11-10 00:39] LABS: ABSOLUTE NEUTROPHILS 5.8 thou/uL (1.4-8.2); EOSINOPHILS 2.7 % (0.0-3.0); HEMATOCRIT 43.5 % (37.0-47.0); HEMOGLOBIN 14.9 gm/dL (12.0-15.0); LYMPHOCYTES 29.2 % (24.0-44.0); MCH 30.8 pg (26.0-34.0); MCHC 34.3 g/dL (28.0-37.0); MCV 89.9 fL (80.0-100.0); MONOCYTES 8.1 % (1.0-8.0); PLATELET COUNT 262 thou/uL (150-400); RBC 4.83 mil/uL (4.20-5.00); RDW 13.1 % (10.5-14.5); WBC 9.9 thou/uL (4.0-11.0)
[2021-11-10 00:45] LABS: CALCIUM 9.6 mg/dL (8.5-10.1); CREATININE 0.9 mg/dL (0.6-1.0); POTASSIUM 3.8 mmol/L (3.5-5.1)
[2021-11-10] MEDS ORDERED: METRONIDAZOLE500 M4 PO (02:16)
[2021-11-10] MEDS ORDERED: LEVOFLOXACIN500 MG PO (02:16)
[2021-11-10 03:00] VITALS: BP 126/69
== END 2021-11-10 03:00 | disposition home or self-care (01) ==
LOC: ER 19:52
PROVIDERS: Emergency Medicine
DX: K52.9 Noninfective gastroenteritis and colitis, unspecified (principal); I10 Essential (primary) hypertension; G43.909 Migraine, unspecified, not intractable, without status migrainosus; F31.9 Bipolar disorder, unspecified; Z90.710 Acquired absence of both cervix and uterus; Z79.899 Other long term (current) drug therapy; Z79.891 Long term (current) use of opiate analgesic; Z88.6 Allergy status to analgesic agent; Z88.5 Allergy status to narcotic agent; Z88.0 Allergy status to penicillin; Z88.2 Allergy status to sulfonamides; Z88.8 Allergy status to other drugs, medicaments and biological substances